=== PATIENT | female | born 1990 | race Caucasian/White ===

== ENCOUNTER 2017-01-28 20:40 | Emergency (ER) | payer OTHER ==
[2017-01-28 20:51] VITALS: RESP 16; TEMP 98.6
[2017-01-28] MEDS ORDERED: ONDANSETRON 4 MG/2 ML VIAL IVP ONE (20:51)
[2017-01-28] MEDS ORDERED: NS 1,000 ML IV ONE (20:51)
[2017-01-28 22:00] LABS: % IMMATURE GRANULYOCYTES 0.3 % (0.0-1.1); ABSOLUTE IMMATURE GRANULOCYTES 0.02 10^3/uL (0.00-0.10); ADD DIFF? NO; ADD MORPH? NO; ADD SCAN? NO; ATYPICAL LYMPHOCYTE FLAG 70 (0-99); FRAGMENT RBC FLAG 0 (0-99); HEMATOCRIT 43.5 % (38.0-47.0); HEMOGLOBIN 14.3 g/dL (12.6-16.3); LEFT SHIFT FLG 0 (0-99); LIPEMIA HEMOLYSIS FLAG 80 (0-99); MEAN CELL HEMOGLOBIN CONCENTR. 32.9 g/dL (32.4-36.7); MEAN CELL VOLUME 91.4 fL (81.5-99.8); MEAN PLATELET VOLUME 9.5 fL (8.7-11.7); PLATELET CLUMPS FLAG 0 (0-99); PLATELET COUNT 313 10^3/uL (150-400); RED BLOOD CELL COUNT 4.76 10^6/uL (4.18-5.33); RED CELL DISTRIBUTION WIDTH 11.9 % (11.5-15.2)
[2017-01-28 22:06] LABS: ANION GAP 17 mEq/L (8-16); CALCIUM 9.4 mg/dL (8.5-10.4); CARBON DIOXIDE 26 mEq/l (22-31); CHLORIDE 99 mEq/L (97-110); CREATININE 0.6 mg/dL (0.6-1.0); GLOMERULAR FILTRATION RATE > 60; GLUCOSE 84 mg/dL (70-100); POTASSIUM 3.6 mEq/L (3.5-5.2); SODIUM 142 mEq/L (134-144)
[2017-01-28] MEDS ORDERED: ONDANSETRON 4MG PREPACK#2 BTL TAKEHOME ONE (22:18)
[2017-01-28 22:21] LABS: LEUKOCYTE ESTERASE,URINE NEGATIVE (NEGATIVE); NITRITE,URINE NEGATIVE (NEGATIVE); PH,URINE 5.5 (5.0-7.5)
[2017-01-28 22:22] LABS: COLOR PALE YELLOW
--- NOTE | 2017-01-28 22:25 | UCPHY ---
H & P Patient Type: Established Chief Complaint Nursing Narrative: Nausea, loose stools, epigastric pain x 5 days, vomiting /Friday. Time Seen by Provider: 01/28/17 21:47 HPI/ROS: This patient reports vomiting and diarrhea. Her symptoms started 5 days prior to arrival with vomiting that resolved by Friday, 4 days prior to arrival. She then had diarrhea through the weekend. Since then she has had ongoing nausea and crampy abdominal discomfort primarily in the epigastrium currently minimal in intensity but occasionally moderate in intensity. She reports that she had small amount of bright red blood in her 1st episode of emesis but non thereafter. ROS: No high fevers or chills. No other constitutional symptoms. HEENT: No recent URI symptoms or other complaints. Pulmonary: No cough shortness of breath. Cardiovascular: No lightheadedness. GI: No coffee-ground emesis. No dark tarry stools or bright red blood in stools. : No urinary symptoms. 10 point ROS is otherwise negative. Source: Patient Exam Limitations: No limitations - Personal History LMP (Females 10-55): 22-28 Days Ago Current Tetanus Diphtheria and Acellular Pertussis (TDAP): Yes Tetanus Vaccine Date: within 10 years - Medical/Surgical History PMH: Otherwise healthy Hx Asthma: Yes Hx Chronic Respiratory Disease: No Hx Diabetes: No Hx Cardiac Disease: No Hx Renal Disease: No Hx Cirrhosis: No Hx Alcoholism: No Hx HIV/AIDS: No Hx Splenectomy or Spleen Trauma: No Other PMH: Asthma - Family History Significant Family History: No pertinent family hx - Social History Smoking Status: Never smoked Alcohol Use: Rarely Drug Use: None Additional Social History: No recent foreign travel or suspect food. - Physical Exam Exam: General Appearance: Alert, no distress. Eyes: Pupils equal and round no pallor or injection. ENT, Mouth: Mucous membranes dry. Respiratory: There are no retractions, lungs are clear to auscultation. Cardiovascular: Regular rate and rhythm. Gastrointestinal: Normoactive, soft, minimal epigastric tenderness with no guarding or rebound. Back: No CVA tenderness Neurological: Alert with no focal deficits Skin: Warm and dry, no rashes. Musculoskeletal: Neck is supple nontender. Extremities are symmetrical, full range of motion. Psychiatric: Mood and affect normal DIFFERENTIAL DIAGNOSIS: After history and physical exam differential diagnosis was considered for viral gastroenteritis, dehydration, gastritis, UTI, Constitutional: Initial Vital Signs Temperature (C) 37 C 01/28/17 20:43 Heart Rate 78 01/28/17 20:43 Respiratory Rate 16 01/28/17 20:43 Blood Pressure 118/79 01/28/17 20:43 O2 Sat (%) 98 01/28/17 20:43 O2 Delivery Mode Room Air Allergies/Adverse Reactions: No Known Allergies Allergy (Verified 01/28/17 20:50) Home Medications: Medication Instructions Recorded NK [No Known Home Meds] 01/28/17 Medical Decision Making ED Course/Re-evaluation: test is negative, CBC and electrolytes normal IV normal saline bolus I counseled the patient regarding viral gastritis in crampy pain. She feels well time of discharge - Data Points Laboratory Results: Laboratory Results 01/28/17 Unknown 01/28/17 Unknown 01/28/17 01/28/17 01/28/17 Unknown Unknown 22:00 WBC 6.97 10^3/uL 10^3/uL (3.80-9.50) RBC 4.76 10^6/uL 10^6/uL (4.18-5.33) Hgb 14.3 g/dL g/dL (12.6-16.3) Hct 43.5 % % (38.0-47.0) MCV 91.4 fL fL (81.5-99.8) MCH 30.0 pg pg (27.9-34.1) MCHC 32.9 g/dL g/dL (32.4-36.7) RDW 11.9 % % (11.5-15.2) Plt Count 313 10^3/uL 10^3/uL (150-400) MPV 9.5 fL fL (8.7-11.7) Neut % (Auto) 51.8 % % (39.3-74.2) Lymph % (Auto) 38.0 % % (15.0-45.0) Callahan % (Auto) 7.9 % % (4.5-13.0) Eos % (Auto) 1.7 % % (0.6-7.6) Baso % (Auto) 0.3 % % (0.3-1.7) Nucleat RBC Rel Count 0.0 % % (0.0-0.2) Absolute Neuts (auto) 3.61 10^3/uL 10^3/uL (1.70-6.50) Absolute Lymphs (auto) 2.65 10^3/uL 10^3/uL (1.00-3.00) Absolute Monos (auto) 0.55 10^3/uL 10^3/uL (0.30-0.80) Absolute Eos (auto) 0.12 10^3/uL 10^3/uL (0.03-0.40) Absolute Basos (auto) 0.02 10^3/uL 10^3/uL (0.02-0.10) Absolute Nucleated RBC 0.00 10^3/uL 10^3/uL (0-0.01) Immature Gran % 0.3 % % (0.0-1.1) Immature Gran # 0.02 10^3/uL 10^3/uL (0.00-0.10) Sodium 142 mEq/L mEq/L (134-144) Potassium 3.6 mEq/L mEq/L (3.5-5.2) Chloride 99 mEq/L mEq/L (97-110) Carbon Dioxide 26 mEq/l mEq/l (22-31) Anion Gap 17 mEq/L H mEq/L (8-16) BUN 7 mg/dL mg/dL (7-23) Creatinine 0.6 mg/dL mg/dL (0.6-1.0) Estimated GFR > 60 Glucose 84 mg/dL mg/dL (70-100) Calcium 9.4 mg/dL mg/dL (8.5-10.4) Beta HCG, Qual Urine Color PALE YELLOW Urine Appearance CLEAR Urine pH 5.5 (5.0-7.5) Ur Specific Hazel <= 1.005 (1.002-1.030) Urine Protein NEGATIVE (NEGATIVE) Urine Ketones NEGATIVE (NEGATIVE) Urine Blood NEGATIVE (NEGATIVE) Urine Nitrate NEGATIVE (NEGATIVE) Urine Bilirubin NEGATIVE (NEGATIVE) Urine Urobilinogen 0.2 EU EU (0.2-1.0) Ur Leukocyte Esterase NEGATIVE (NEGATIVE) Ur Culture Indicated? NOT INDICATED (NI) Urine Glucose NEGATIVE (NEGATIVE) 01/28/17 21:00 WBC RBC Hgb Hct MCV MCH MCHC RDW Plt Count MPV Neut % (Auto) Lymph % (Auto) Callahan % (Auto) Eos % (Auto) Baso % (Auto) Nucleat RBC Rel Count Absolute Neuts (auto) Absolute Lymphs (auto) Absolute Monos (auto) Absolute Eos (auto) Absolute Basos (auto) Absolute Nucleated RBC Immature Gran % Immature Gran # Sodium Potassium Chloride Carbon Dioxide Anion Gap BUN Creatinine Estimated GFR Glucose Calcium Beta HCG, Qual NEGATIVE Urine Color Urine Appearance Urine pH Ur Specific Hazel Urine Protein Urine Ketones Urine Blood Urine Nitrate Urine Bilirubin Urine Urobilinogen Ur Leukocyte Esterase Ur Culture Indicated? Urine Glucose Medications Given: Discontinued Medications Sodium Chloride (Ns) 1,000 mls @ 0 mls/hr IV EDNOW ONE PRN Reason: As Directed Stop: 01/28/17 20:52 Last Admin: 01/28/17 21:18 Dose: 1,000 mls Ondansetron HCl (Zofran) 4 mg IVP EDNOW ONE Stop: 01/28/17 20:52 Last Admin: 01/28/17 21:19 Dose: 4 mg Ondansetron HCl (Zofran Odt 4 Mg Prepack#2) 1 btl TAKEHOME EDNOW ONE Stop: 01/28/17 22:19 Last Admin: 01/28/17 22:41 Dose: 1 btl Departure - Departure Disposition: Home, Routine, Self-Care Clinical Impression: Viral gastroenteritis, Abdominal cramping Condition: Good Instructions: Gastroenteritis (ED) Additional Instructions: Dx: Viral gastroenteritis Your labs are reassuring tonight & you are not . Plan: Plenty of fluids Light diet until he feel improved Zofran if needed for nausea vomiting Imodium if needed for diarrhea Return for any significant worsening despite the treatment plan Referrals: Jesusita Abdalla MD [Primary Care Provider] - As per Instructions - PQRS PQRS Measurement: NA
[2017-01-28 22:57] VITALS: BP 110/73; PULSE 72; O2SAT 97
== END 2017-01-28 22:40 | disposition home or self-care (01) ==
LOC: CED 20:40
DX: A08.4 Viral intestinal infection, unspecified (principal)
CPT/HCPCS: 80048-PO; 81003-PO; 84703-PO; 85025-PO; 96361-PO; 96374-PO; 99215-PO; G0463-PO; J2405